=== PATIENT | male | born 1995 | race Caucasian/White ===

== ENCOUNTER 2020-08-12 11:19 | Emergency (ER) | payer OTHER ==
[~2020-08-12] VITALS: Ht 177.8 cm; Wt 90.5 kg
--- NOTE | 2020-08-12 12:01 | REP ---
INDICATION: recent surgery/draining-? effusion COMPARISON: None. TECHNIQUE: Internal rotation, external rotation, and Y view. FINDINGS: No acute fracture or dislocation. The acromioclavicular and glenohumeral joints are intact. No periarticular calcifications or degenerative changes are appreciated. Sub acromial space is normal. Surrounding soft tissues are unremarkable. No subcutaneous emphysema or significant foreign body. IMPRESSION: Normal right shoulder radiographs. No significant swelling or subcutaneous emphysema appreciated. <Electronically signed by Wai Christianson > 08/12/20 [id number]
[2020-08-12 12:07] LABS: BASO % 0.5 % (0.0-1.0); EOS # 0.1 10^3/uL (0.0-0.5); EOS % 1.7 % (0.0-3.0); HEMATOCRIT 45.5 % (42.0-52.0); HEMOGLOBIN 14.9 g/dl (13.5-17.5); LYMPH # 1.5 10^3/uL (1.5-5.0); LYMPH % 18.6 % (24.0-44.0); MEAN CORPUSCULAR HEMOGLOBIN 28.3 pg (27.0-33.0); MEAN CORPUSCULAR HGB CONC 32.7 g/dl (32.0-36.5); MEAN CORPUSCULAR VOLUME 86.3 fl (80.0-96.0); MONO # 0.4 10^3/uL (0.0-0.8); MONO % 5.2 % (2.0-8.0); NEUTROPHILS # 6.1 10^3/uL (1.5-8.5); NEUTROPHILS % 73.6 % (36.0-66.0); PLATELET COUNT, AUTOMATED 333 10^3/uL (150-450); RED BLOOD COUNT 5.27 10^6/uL (4.30-6.10); WHITE BLOOD COUNT 8.2 10^3/uL (4.0-10.0)
[2020-08-12 12:29] LABS: ALBUMIN 3.8 GM/DL (3.2-5.2); BILIRUBIN,DIRECT 0.2 MG/DL (0.0-0.2); BILIRUBIN,TOTAL 0.9 MG/DL (0.2-1.0); C REACTIVE PROTEIN QUANTITATIV 2.61 MG/DL (0.00-0.30); TOTAL PROTEIN 7.5 GM/DL (6.4-8.2)
[2020-08-12 12:48] LABS: ERYTHROCYTE SEDIMENTATION RATE 28 mm/hr (0-15)
[2020-08-12 12:54] VITALS: BP 142/84
== END 2020-08-12 12:56 | disposition home or self-care (01) ==
LOC: M ED 11:19
DX: M25.511 Pain in right shoulder (principal); T81.89XA Other complications of procedures, not elsewhere classified, initial encounter

== ENCOUNTER 2020-09-17 20:10 | Emergency (ER) | payer OTHER ==
[~2020-09-17] VITALS: Ht 177.8 cm; Wt 91.9 kg
[2020-09-17 20:10] VITALS: BP 156/84
[2020-09-17] MEDS ORDERED: LIDOCAINE W/EPINEPHRINE 1% 20ML VIAL SC ONE (21:25)
[2020-09-17] MEDS ORDERED: NEOSPORIN OINT 0.9 GM PKT TOP ONE (22:00)
== END 2020-09-17 22:13 | disposition home or self-care (01) ==
LOC: M ED 20:10
DX: S81.811A Laceration without foreign body, right lower leg, initial encounter (principal); W01.10XA Fall on same level from slipping, tripping and stumbling with subsequent striking against unspecified object, initial encounter; Y92.410 Unspecified street and highway as the place of occurrence of the external cause; Y93.9 Activity, unspecified; Y99.9 Unspecified external cause status

== ENCOUNTER 2020-11-02 13:51 | Outpatient (CLI) | payer OTHER ==
[~2020-11-02] VITALS: Ht 177.8 cm; Wt 90.9 kg
[2020-11-02] MEDS ORDERED: cefTRIAXone SOD 2 GM in D5W MINI-BAG PLUS 50 ML IV SCH (14:00)
[2020-11-02 14:20] VITALS: BP 137/83
[2020-11-02] MEDS ORDERED: DOXY1CAP60 PO (14:33)
[2020-11-02] MEDS ORDERED: cefTRIAXone SOD 2 GM in D5W MINI-BAG PLUS 50 ML IV ONE (14:58)
[2020-11-02 15:15] VITALS: BP 129/62
== END 2020-11-02 15:15 | disposition home or self-care (01) ==
LOC: M INFU 13:51
PROVIDERS: ATTEND Internal Medicine Infectious Disease
DX: A49.8 Other bacterial infections of unspecified site (principal); T81.49XA Infection following a procedure, other surgical site, initial encounter
CPT/HCPCS: 96365; J0696

== ENCOUNTER → 2020-11-02 | Outpatient (REF) | payer OTHER ==
[~2020-11-02] MED LIST: DOXY1CAP60 PO
== END ==
LOC: M SFHCPLAZ 15:08
PROVIDERS: ATTEND Internal Medicine Infectious Disease
DX: A49.8 Other bacterial infections of unspecified site (principal)
CPT/HCPCS: 87070; 87077; 87186; G0463

== ENCOUNTER 2020-11-03 13:12 | Outpatient (CLI) | payer OTHER ==
[~2020-11-03] VITALS: Ht 177.8 cm; Wt 90.9 kg
[~2020-11-03 13:12] MED LIST changes: -LIDOCAINE 1% MDV 20ML VIAL As Ordered ONE
[2020-11-03] MEDS ORDERED: cefTRIAXone SOD 2 GM in D5W MINI-BAG PLUS 50 ML IV SCH (14:00)
[2020-11-03] MEDS ORDERED: SODIUM CHLORIDE 0.9% INJ 10 ML SYR IV PRN (14:20)
[2020-11-03 14:38] VITALS: BP 136/63
[2020-11-03] MEDS ORDERED: SODIUM CHLORIDE 0.9% INJ 10 ML SYR IV SCH (18:00)
== END 2020-11-03 14:55 | disposition home or self-care (01) ==
LOC: M INFU 13:12
PROVIDERS: ATTEND Internal Medicine Infectious Disease
DX: A49.8 Other bacterial infections of unspecified site (principal); T81.49XA Infection following a procedure, other surgical site, initial encounter
CPT/HCPCS: 96365; 96523; J0696; J1642

== ENCOUNTER → 2020-11-03 | Outpatient (CLI) | payer OTHER ==
[~2020-11-03] MED LIST changes: +LIDOCAINE 1% MDV 20ML VIAL As Ordered ONE
[2020-11-03 13:38] VITALS: BP 134/71
--- NOTE | 2020-11-04 09:20 | REP ---
INDICATION: RT SHOULDER INFECTION PICC LINE PT ALSO HAS INFUSION. COMPARISON: None. TECHNIQUE: The procedure was performed under the direct supervision of Dr. Wilburn. The risks and benefits of the procedure were explained to the patient and informed consent was obtained. The left brachial vein was localized using ultrasound guidance. The skin was prepped and draped in a sterile fashion. 2% lidocaine was used as a local anesthetic. Using ultrasound guidance the brachial vein was cannulated and a 0.018 guidewire was inserted and advanced to the SVC using fluoroscopic guidance, and last image hold technology. The needle was removed and a 4.5 Serbian dilator and peel-away sheath was inserted over the guide wire. A 4.5 Serbian single lumen catheter was cut to length of 43 cm. The dilator was removed and the catheter was inserted over the guide wire with the tip ending in the SVC. The peel-away sheath was removed and the catheter was flushed with heparinized saline as per Hospital protocol. The catheter was affixed to the skin and a sterile dressing was applied. The patient tolerated the procedure well and there were no immediate complications. 0.4 minutes of fluoro time was utilized for this procedure. FINDINGS: None IMPRESSION: PICC line insertion left brachial vein with the tip ending in the SVC. <Electronically signed by Ernesto Ch > 11/03/20 [id number] <Electronically signed by Derek Wilburn > 11/04/20 [id number]
== END ==
LOC: M IRPRO 13:09
PROVIDERS: ATTEND Internal Medicine Infectious Disease
DX: T81.49XA Infection following a procedure, other surgical site, initial encounter (principal); A49.8 Other bacterial infections of unspecified site
CPT/HCPCS: 36571; 76937; 96365; 96523; C1751; J0696; J1642; J1644

== ENCOUNTER → 2020-11-07 | Outpatient (REF) | payer OTHER ==
[2020-11-07 19:31] LABS: BASO # 0.1 10^3/uL (0.0-0.2); BASO % 0.6 % (0.0-1.0); EOS # 0.2 10^3/uL (0.0-0.5); EOS % 2.7 % (0.0-3.0); HEMATOCRIT 43.9 % (42.0-52.0); HEMOGLOBIN 14.5 g/dl (13.5-17.5); LYMPH % 26.2 % (24.0-44.0); MEAN CORPUSCULAR HEMOGLOBIN 28.8 pg (27.0-33.0); MEAN CORPUSCULAR VOLUME 87.3 fl (80.0-96.0); MONO # 0.4 10^3/uL (0.0-0.8); MONO % 5.1 % (2.0-8.0); NEUTROPHILS % 65.1 % (36.0-66.0); PLATELET COUNT, AUTOMATED 267 10^3/uL (150-450); RED BLOOD COUNT 5.03 10^6/uL (4.30-6.10); WHITE BLOOD COUNT 7.7 10^3/uL (4.0-10.0)
[2020-11-07 19:58] LABS: ALBUMIN 4.1 GM/DL (3.2-5.2); ALT/SGPT 56 U/L (12-78); BILIRUBIN,TOTAL 0.7 MG/DL (0.2-1.0); BLOOD UREA NITROGEN 16 MG/DL (7-18); CALCIUM LEVEL 9.2 MG/DL (8.5-10.1); CARBON DIOXIDE LEVEL 28 MEQ/L (21-32); CHLORIDE LEVEL 105 MEQ/L (98-107); CREATININE FOR GFR 0.95 MG/DL (0.70-1.30); GLOMERULAR FILTRATION RATE > 60.0 (>60); GLUCOSE, FASTING 106 MG/DL (70-100); POTASSIUM SERUM 3.8 MEQ/L (3.5-5.1); SODIUM LEVEL 139 MEQ/L (136-145); TOTAL PROTEIN 7.5 GM/DL (6.4-8.2)
[2020-11-07 20:43] LABS: ERYTHROCYTE SEDIMENTATION RATE 2 mm/hr (0-15)
== END ==
LOC: M LAB REF 18:52
PROVIDERS: ATTEND Internal Medicine Infectious Disease
DX: A49.8 Other bacterial infections of unspecified site (principal); T81.49XD Infection following a procedure, other surgical site, subsequent encounter

== ENCOUNTER → 2020-11-14 | Outpatient (REF) | payer OTHER ==
[2020-11-14 16:33] LABS: BASO # 0.1 10^3/uL (0.0-0.2); BASO % 0.8 % (0.0-1.0); EOS # 0.3 10^3/uL (0.0-0.5); HEMATOCRIT 44.6 % (42.0-52.0); HEMOGLOBIN 15.2 g/dl (13.5-17.5); LYMPH # 1.6 10^3/uL (1.5-5.0); LYMPH % 24.3 % (24.0-44.0); MEAN CORPUSCULAR HEMOGLOBIN 28.7 pg (27.0-33.0); MEAN CORPUSCULAR HGB CONC 34.1 g/dl (32.0-36.5); MEAN CORPUSCULAR VOLUME 84.2 fl (80.0-96.0); MONO # 0.4 10^3/uL (0.0-0.8); MONO % 6.6 % (2.0-8.0); NEUTROPHILS # 4.1 10^3/uL (1.5-8.5); PLATELET COUNT, AUTOMATED 236 10^3/uL (150-450); WHITE BLOOD COUNT 6.5 10^3/uL (4.0-10.0)
[2020-11-14 17:14] LABS: ALBUMIN 4.4 GM/DL (3.2-5.2); ALT/SGPT 70 U/L (12-78); BILIRUBIN,TOTAL 1.4 MG/DL (0.2-1.0); BLOOD UREA NITROGEN 17 MG/DL (7-18); CALCIUM LEVEL 9.4 MG/DL (8.5-10.1); CARBON DIOXIDE LEVEL 27 MEQ/L (21-32); CHLORIDE LEVEL 103 MEQ/L (98-107); CREATININE FOR GFR 1.06 MG/DL (0.70-1.30); GLOMERULAR FILTRATION RATE > 60.0 (>60); GLUCOSE, FASTING 76 MG/DL (70-100); POTASSIUM SERUM 3.8 MEQ/L (3.5-5.1); SODIUM LEVEL 137 MEQ/L (136-145); TOTAL PROTEIN 7.7 GM/DL (6.4-8.2)
[2020-11-14 17:28] LABS: ERYTHROCYTE SEDIMENTATION RATE 2 mm/hr (0-15)
== END ==
LOC: M LAB REF 15:07
PROVIDERS: ATTEND Internal Medicine Infectious Disease
DX: A49.8 Other bacterial infections of unspecified site (principal); T81.49XD Infection following a procedure, other surgical site, subsequent encounter